=== PATIENT | female | born 1985 | race Caucasian/White ===

== ENCOUNTER 2017-01-12 04:59 | Inpatient (IN) ==
[2017-01-05 16:05] LABS: Basophils # (Auto) 0 K/mcL (0.0-0.3); Basophils % (Auto) 0.5 % (0.0-2.0); Eosinophils # (Auto) 0.1 K/mcL (0.0-0.7); Granulocytes % (Auto) 69.4 % (38.0-78.0); Lymphocytes # (Auto) 2.4 K/mcL (1.5-4.8); Lymphocytes % (Auto) 24.2 % (15.5-49.0); Mean Cell Volume 90.4 fL (80.0-100.0); Mean Corpuscular HGB Conc 33.8 g/dL (31.0-36.0); Mean Corpuscular Hemoglobin 30.6 pg (26.0-34.0); Monocytes # (Auto) 0.5 K/mcL (0.1-0.9); Monocytes % (Auto) 4.9 % (1.0-12.0); Platelet Count 318 K/mcL (140-440); RBC 4.76 M/mcL (4.00-5.20); Red Cell Distribution Width 12.5 % (11.5-14.5)
[2017-01-05 16:07] LABS: HCG,Serum NEGATIVE <10 (<10 mIU/ml)
[2017-01-05 16:09] LABS: Blood Urea Nitrogen 10 mg/dl (6-20)
[2017-01-05 16:16] LABS: Appearance,Urine HAZY; Bacteria,Urine 0 /hpf (0); Bilirubin,Urine NEG (NEG); Color,Urine YELLOW; Glucose,Urine (UA) NEGATIVE (NEG); Leukocyte Esterase,Urine NEG /uL (NEG); Mucus,Urine MANY /hpf (0); Nitrate,Urine NEG (NEG); Protein,Urine NEG (NEG); Specific Gravity,Urine 1.021 (1.000-1.035); Urine Blood 0.03 mg/dL (<0.03); Urine Hyaline Cast 2 /lpf (0-2); Urine RBC 1 /hpf (0-1); Urine Squamous Epithelial Cell 2 /hpf (0-4); Urine WBC 5 /hpf (0-4); Urobilinogen,Urine NEG (NEG)
[2017-01-12] MEDS ORDERED: PREGABALIN 75 MG CAPSULE PO SCH (06:00)
[2017-01-12] MEDS ORDERED: ACETAMINOPHEN 500 MG TABLET PO SCH (06:00)
[2017-01-12] MEDS ORDERED: ceFAZolin 1 GM VIAL IV SCH (06:00)
[2017-01-12] MEDS ORDERED: oxyCODONE 10 MG TAB.ER.12H PO SCH (06:00)
[2017-01-12 06:49] LABS: Appearance,Urine HAZY; Bacteria,Urine 0 /hpf (0); Bilirubin,Urine NEG (NEG); Color,Urine YELLOW; Glucose,Urine (UA) NEGATIVE (NEG); Leukocyte Esterase,Urine NEG /uL (NEG); Mucus,Urine MANY /hpf (0); Nitrate,Urine NEG (NEG); Protein,Urine NEG (NEG); Urine Blood 0.03 mg/dL (<0.03); Urine RBC 1 /hpf (0-1); Urine Squamous Epithelial Cell 3 /hpf (0-4); Urine WBC 2 /hpf (0-4); Urobilinogen,Urine NEG (NEG)
[2017-01-12] MEDS ORDERED: SCOPOLAMINE 1 PATCH PATCH TOPICAL ONE (06:55)
[2017-01-12] MEDS ORDERED: TRANEXAMIC ACID 1,000 MG/10 ML VIAL IV ONE (08:00)
[2017-01-12] MEDS ORDERED: PHENYLEPHRINE 10 MG/ML VIAL IV ONE (08:00)
[2017-01-12] MEDS ORDERED: DEXAMETHASONE 10 MG/ML VIAL IV ONE (08:00)
[2017-01-12] MEDS ORDERED: PROPOFOL 200 MG/20 ML VIAL IV ONE (08:00)
[2017-01-12] MEDS ORDERED: MIDAZOLAM 5 MG/5 ML VIAL IV ONE (08:00)
[2017-01-12] MEDS ORDERED: LIDOCAINE HCL/PF 100 MG/5 ML SYRINGE IV ONE (08:00)
[2017-01-12] MEDS ORDERED: ONDANSETRON 4 MG/2 ML VIAL IV ONE (08:00)
[2017-01-12] MEDS ORDERED: ePHEDrine 50 MG/ML AMPUL IV ONE (08:00)
[2017-01-12] MEDS ORDERED: KETAMINE 100 MG/ML ML IV ONE (08:00)
[2017-01-12] MEDS ORDERED: ROPIVACAINE HCL/PF 49.5 ML, EPINEPHrine 0.5 MG, 0.9 % SODIUM CHLORIDE 9 ML IJ ONE (08:01)
[2017-01-12] MEDS ORDERED: GENTAMICIN SULFATE 800 MG/20 ML VIAL IR ONE (08:18)
[2017-01-12] MEDS ORDERED: BENZOCAINE/MENTHOL 1 LOZENGE PO PRN ×2 (08:41→09:13)
[2017-01-12] MEDS ORDERED: ePHEDrine 50 MG/ML AMPUL IV PRN (08:41)
[2017-01-12] MEDS ORDERED: MEPERIDINE 25 MG/ML SYRINGE IV PRN (08:41)
[2017-01-12] MEDS ORDERED: METHOCARBAMOL 1,000 MG/10 ML VIAL IV PRN (08:41)
[2017-01-12] MEDS ORDERED: ACETAMINOPHEN 1,000 MG/100 ML BOTTLE IV ONE (08:41)
[2017-01-12] MEDS ORDERED: PROMETHAZINE 25 MG/ML VIAL IV PRN (08:41)
[2017-01-12] MEDS ORDERED: IPRATROPIUM/ALBUTEROL 3 ML AMPUL.NEB NEB PRN (08:41)
[2017-01-12] MEDS ORDERED: ONDANSETRON 4 MG/2 ML VIAL IV PRN ×2 (08:41→09:13)
[2017-01-12] MEDS ORDERED: FLUMAZENIL 0.1 MG/ML ML IV PRN (08:41)
[2017-01-12] MEDS ORDERED: ATROPINE SULFATE 0.4 MG/ML VIAL IV PRN (08:41)
[2017-01-12] MEDS ORDERED: NALOXONE HCL 0.4 MG/ML VIAL IV PRN (08:41)
[2017-01-12] MEDS ORDERED: diphenhydrAMINE 50 MG/ML VIAL IV PRN (08:41)
[2017-01-12] MEDS ORDERED: METOPROLOL TARTRATE 5 MG/5 ML VIAL IV PRN (08:41)
[2017-01-12] MEDS ORDERED: LACTATED RINGERS 1,000 ML IV SCH (08:45)
[2017-01-12] MEDS ORDERED: ACETAMINOPHEN 325 MG TABLET PO PRN (09:13)
[2017-01-12] MEDS ORDERED: BISACODYL 10 MG SUPP.RECT PR PRN (09:13)
[2017-01-12] MEDS ORDERED: FLEETS ADULT ENEMA PR PRN (09:13)
[2017-01-12] MEDS ORDERED: POLYETHYLENE GLYCOL 3350 17 GM PACKET PO PRN (09:13)
[2017-01-12] MEDS ORDERED: TRANEXAMIC ACID 1,000 MG/10 ML VIAL IV SCH (09:13)
[2017-01-12] MEDS ORDERED: MAGNESIUM HYDROXIDE 30 ML ORAL.SUSP PO PRN (09:13)
--- NOTE | 2017-01-12 09:13 | Brief Operative Note ---
Date of procedure: 01/12/17 Pre-op diagnosis: right knee djd and unstable patella Post-op diagnosis: same Procedure: right TKA Grafts/Implants: Yes Anesthesia: GETA Complications Description: 01/12/17 09:12 none Surgeon: Jordy Teran Clean Room Operator: Skinny Jorge Estimated blood loss (cc): 50 Tourniquet Time (Minutes): 55 Specimens Removed/Pathology: none sent Condition: stable Disposition: PACU
[2017-01-12] MEDS ORDERED: SUMAtriptan SUCCINATE 25 MG TABLET PO PRN (09:15)
[2017-01-12] MEDS: fentaNYL 100 MCG/2 ML VIAL IV PRN ×3 (10:09→10:26)
[2017-01-12] MEDS ORDERED: HYDROmorphone 2 MG/ML SYRINGE IV ONE (10:38)
[2017-01-12] MEDS: HYDROmorphone 2 MG/ML SYRINGE IV PRN ×6 (10:38→22:56)
--- NOTE | 2017-01-12 10:39 | XRay Report ---
HISTORY: Reason for Exam:Post-Op Total Knee FINDINGS: There is a well positioned total knee prosthesis. No fracture is present. IMPRESSION: Well-positioned right knee prosthesis Interpreted and Authenticated by: Amado Buchanan 01/12/17
[2017-01-12] MEDS: DIAZEPAM 10 MG/2 ML SYRINGE IV ONE ×2 (10:45→12:20)
[2017-01-12] MEDS ORDERED: DIAZEPAM 10 MG/2 ML SYRINGE ONE (10:51)
[2017-01-12] MEDS: ALPRAZolam 0.5 MG TABLET PO PRN (11:42)
[2017-01-12] MEDS: oxyCODONE/APAP 5/325MG TABLET PO PRN ×3 (11:43→23:58)
[2017-01-12] MEDS: 0.45 % SODIUM CHLORIDE 1,000 ML IV SCH ×2 (11:45→21:52)
[2017-01-12] MEDS: KETOROLAC 15 MG/ML VIAL IV SCH ×3 (12:21→23:23)
[2017-01-12] MEDS: 0.9 % SODIUM CHLORIDE 10 ML SYRINGE IV SCH ×2 (12:41→21:00)
[2017-01-12] MEDS: ceFAZolin 1 GM VIAL IV SCH ×2 (14:38→23:12)
[2017-01-12] MEDS: FERROUS SULFATE 325 MG TABLET PO SCH (18:08)
[2017-01-12] MEDS: DOCUSATE SODIUM 100 MG CAPSULE PO SCH (20:58)
[2017-01-12] MEDS: TOPIRAMATE 25 MG TABLET PO SCH (20:58)
[2017-01-12] MEDS: oxyCODONE 10 MG TAB.ER.12H PO SCH (20:59)
[2017-01-12] MEDS: SENNOSIDES 1 TABLET PO SCH (20:59)
[2017-01-12] MEDS: NORETHINDRONE E ESTRADIOL IRON PO SCH (21:00)
[2017-01-12] MEDS: ASPIRIN 325 MG ENTERIC COATED TABLET PO SCH (21:00)
[2017-01-12] MEDS ORDERED: TEMAZEPAM 15 MG CAPSULE PO PRN (21:00)
[2017-01-12] MEDS ORDERED: ZOLPIDEM 10 MG TABLET PO SCH (21:00)
[2017-01-13] MEDS: HYDROmorphone 2 MG/ML SYRINGE IV PRN ×6 (02:04→23:45)
[2017-01-13] MEDS: ALPRAZolam 0.5 MG TABLET PO PRN (02:04)
[2017-01-13] MEDS: oxyCODONE/APAP 5/325MG TABLET PO PRN ×4 (05:02→23:45)
[2017-01-13] MEDS: 0.9 % SODIUM CHLORIDE 10 ML SYRINGE IV SCH ×3 (05:03→23:45)
[2017-01-13] MEDS: KETOROLAC 15 MG/ML VIAL IV SCH ×3 (05:03→17:28)
[2017-01-13] MEDS: 0.45 % SODIUM CHLORIDE 1,000 ML IV SCH ×2 (06:20→17:50)
[2017-01-13] MEDS: LEVOTHYROXINE 100 MCG TABLET PO SCH (06:49)
[2017-01-13] MEDS: METHOCARBAMOL 750 MG TABLET PO PRN (07:56)
--- NOTE | 2017-01-13 07:58 | Orthopedic Progress Note ---
Subjective Patient information: Note initiated : 01/13/17 at 7:57 am Service Date, if different from initiated Date: [] Patient: Marline Zuñiga 31 y/o F admitted on 01/12/17 for Right Total Knee Arthroplasty Luis Manuel. Chief Complaint: [Pt is stable this morning on post operative day 1 without any significant concerns or complaints. Patients vital signs have remained stable. Patients dressing is dry and exhibits a grossly intact neurovascular and neuromotor exam. Patients 10 point ROS is otherwise negative. ] Objective Vital signs: Vital Signs Temp Pulse Resp BP BP Pulse Ox 01/13/17 07:24 99 01/13/17 07:18 98.2 F 20 107/67 97 01/13/17 04:35 97 01/13/17 04:00 97.8 F 64 20 106/67 97 01/12/17 23:39 97.8 F 71 20 103/62 92 01/12/17 21:00 95 01/12/17 20:00 97.7 F 84 20 113/78 95 01/12/17 17:00 93 01/12/17 15:15 97.9 F 18 121/80 96 01/12/17 13:58 112 H 113/76 96 01/12/17 13:13 96 01/12/17 12:45 111 H 16 100/63 96 01/12/17 12:15 94 H 109/72 96 01/12/17 12:00 95 H 124/88 99 01/12/17 11:45 93 H 143/94 100 01/12/17 11:30 97.1 F 115 H 24 H 127/84 100 01/12/17 11:19 97.6 F 76 24 H 143/103 98 01/12/17 11:15 103 H 15 148/115 96 01/12/17 11:10 81 34 H 133/86 97 01/12/17 11:00 97 H 24 H 154/106 97 01/12/17 10:45 121 H 20 136/102 97 01/12/17 10:35 126 H 21 147/100 96 01/12/17 10:20 120 H 21 144/93 94 01/12/17 10:15 105 H 19 135/84 93 01/12/17 10:10 113 H 21 133/84 95 01/12/17 10:04 112 H 18 138/75 94 01/12/17 09:59 117 H 18 140/77 92 01/12/17 09:54 113 H 16 140/81 94 01/12/17 09:49 112 H 12 128/76 98 01/12/17 09:39 112 H 12 128/76 99 01/12/17 09:34 99.6 F H 120 H 16 124/78 94 Intake and Output 01/12/17 01/13/17 01/13/17 21:59 05:59 13:59 Intake Total 1560 / 1560 1100 / 1100 Output Total 3000 / 3000 2375 / 2375 800 / 800 Balance -1440 / -1440 -1275 / -1275 -800 / -800 Intake: IV 1000 / 1000 Sodium Chloride 0.45% 1,000 ml 1000 / 1000 @ 100 mls/hr IV .Q10H CHELE Rx#: [id number] Oral 560 / 560 1100 / 1100 Output: Urine Catheter Amount 1800 / 1800 2175 / 2175 800 / 800 Void Amount 1200 / 1200 200 / 200 Other: # Voids 1 Weight 220 lb 9.6 oz Intake & Output: Intake & Output 01/12/17 01/13/17 01/13/17 21:59 05:59 13:59 Intake Total 1560 / 1560 1100 / 1100 Output Total 3000 / 3000 2375 / 2375 800 / 800 Balance -1440 / -1440 -1275 / -1275 -800 / -800 Weight 220 lb 9.6 oz Intake: IV 1000 / 1000 Sodium Chloride 0.45% 1,000 ml 1000 / 1000 @ 100 mls/hr IV .Q10H CHELE Rx#: [id number] Oral 560 / 560 1100 / 1100 Output: Urine Catheter Amount 1800 / 1800 2175 / 2175 800 / 800 Void Amount 1200 / 1200 200 / 200 Other: # Voids 1 Incision clean and dry: Yes Dressing: Yes clean Neurological exam IM: Yes motor sensory intact, Yes neurovascular intact Extremities exam IM: Yes Foot pink and warm, Yes neurovascular intact - Labs CBC & BMP: 01/13/17 05:46 01/05/17 13:34 Labs: Orthopedic Labs 01/05/17 13:34 PT 13.6 INR 1.0 APTT 32 01/13/17 01/05/17 05:46 13:34 Hgb 14.6 Hct 29.9 L 43.0 Assessment and Plan (1) Hx of total knee arthroplasty The patient has been educated regarding dressing care, Physical Therapy recommendations, home exercises, restrictions, and follow up appointments. The patient has had all necessary DME prescribed. The patient has remained stable during their hospital course. The patient was discharge with a stable exam. Status: Acute
--- NOTE | 2017-01-13 08:00 | Discharge Summary ---
Ortho Discharge - TKA - Patient Instructions Diet: Regular Diet Activity: activity as tolerated, weight bearing as tolerated Total Knee Protocol: For Total Knee: Start ROM CHELI with stationary bike or rocking chair. Work on gaining full extension of knee. Posterior dislocation precautions provided. Hip abductor strengthening and gait training instructions provided. Apply Cryocuff as instructed. Dressing Care: May shower in 2 days Patient Education: Total Knee Replacement (DC) Additional Instructions: CPM for home use - Problem Maintenance (1) Hx of total knee arthroplasty Status: Acute - Follow Up Plan Follow Up Appointments: Jordy Teran MD [Physician] - 01/27/17 9:20 am Disposition: Home, Self-Care Prognosis: Good Rehab Potential: Good I certify that the patient requires SNF services: No Overall status at discharge: patient is progressing back to baseline - Orders For Discharge Prescriptions: Aspirin [Ecotrin] 325 mg PO BID #60 tab.ec Docusate Sodium [Colace] 100 mg PO BID #60 cap oxyCODONE [Oxycontin] 10 mg PO BID #30 tab.er.12h oxyCODONE/APAP [Percocet 5-325 mg] 1 - 2 tab PO Q4HP PRN #75 tab PRN Reason: Pain Level 3-6
--- NOTE | 2017-01-13 08:35 | Operative Note ---
DATE OF OPERATION: 01/12/2017 PREOPERATIVE DIAGNOSIS: A 31-year-old with a right knee with patellar instability and severe arthritis. 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 PROCEDURE: Right knee total knee arthroplasty. SURGEON: Jordy Teran M.D. ACCESS LEAD: Skinny Jorge PA-C. ANESTHESIA: General LMA anesthesia. COMPLICATIONS: None. BLOOD LOSS: Less than 50 mL. TOURNIQUET TIME: 55 minutes. DESCRIPTION OF PROCEDURE: The patient was brought to the operating room and put to sleep with general LMA anesthesia. Once we confirmed the operative site as the right knee both by x-rays, timeout, and initials on the skin, we then exsanguinated the leg and inflated the tourniquet to 250 pounds of pressure. A midline incision was then created, mid vastus approach. We inspected the knee. Once into the knee this showed no patellofemoral groove. The patella would easily pop in and out of the joint. It was very unstable. The medial articular surface of the femur was in good repair with a torn medial meniscus laterally. The compartment showed a medial osteochondroma defect. ACL and PCL were intact. At this point, we proceeded with a total knee arthroplasty, both to correct the arthritis of patellofemoral joint and to realign the patella. She had valgus malalignment. Once this was done, we irrigated thoroughly. We then placed pins above and below the knee, registered the pins in the knee and thirty points on the femur and tibia. We balanced the knee, both at 15 and 90 degrees. We brought the robot in, registered the robot, and then made our distal femoral cut and our chamfer cuts. Anterior cut was also made. We then registered the tibia and the robot and made our tibial cut. Once this was done, we removed these bony fragments, preserved the posterior cruciate ligament and removed the remnants of the meniscus, and removed osteophytes posteriorly. Once done, we irrigated and then we placed a tibial tray, setting the rotation per robot and tapped this into place. We made the fin cuts and central reaming for a long stemmed component. We irrigated thoroughly and then placed a trial. The femur was then covered, positioning this as far laterally as possible. This was tapped into place. Trialed a standard thickness poly. This seemed to fit very nicely. Full range of motion. We achieved 1 degree flexion and extension. We then prepared the patella. It only measured 17 mm. There was significant bone loss. We took this down to 13 mm and then cemented into place a 33 mm patellar component. This made the kneecap 22 mm in total thickness after the reconstruction. We irrigated thoroughly and the patella tracked very nicely. We irrigated thoroughly. The knee was very stable through range of motion. We then closed the mid vastus approach and cemented in the above-mentioned components. All these components were cemented without antibiotics. Excess cement was removed. We kept the knee at 45 degrees until the cement was completely dried. We then took the knee through range of motion, very stable. We prepared the anterior medial capsule closure with #1 Stratafix suture x2 sutures for reinforcement. We then closed the skin with 2-0 Vicryl and adhesive closure. The patient tolerated this well without complication. Tourniquet time was 55 minutes. Blood loss was 50 mL. [id number]:[id number] Job ID: [id number] Doc ID: [id number] Jordy Teran MD
[2017-01-13] MEDS: DOCUSATE SODIUM 100 MG CAPSULE PO SCH ×2 (08:39→21:04)
[2017-01-13] MEDS: TOPIRAMATE 25 MG TABLET PO SCH ×2 (08:40→21:05)
[2017-01-13] MEDS: oxyCODONE 10 MG TAB.ER.12H PO SCH ×2 (08:40→21:04)
[2017-01-13] MEDS: ASPIRIN 325 MG ENTERIC COATED TABLET PO SCH ×2 (08:40→21:04)
[2017-01-13] MEDS: FERROUS SULFATE 325 MG TABLET PO SCH (17:53)
[2017-01-13] MEDS: SENNOSIDES 1 TABLET PO SCH (21:04)
[2017-01-13] MEDS: NORETHINDRONE E ESTRADIOL IRON PO SCH (21:05)
[2017-01-14] MEDS: KETOROLAC 15 MG/ML VIAL IV SCH ×2 (00:48→05:53)
[2017-01-14] MEDS: METHOCARBAMOL 750 MG TABLET PO PRN ×2 (01:06→07:08)
[2017-01-14] MEDS: 0.45 % SODIUM CHLORIDE 1,000 ML IV SCH (01:53)
[2017-01-14] MEDS: oxyCODONE/APAP 5/325MG TABLET PO PRN ×3 (03:22→11:08)
[2017-01-14] MEDS: HYDROmorphone 2 MG/ML SYRINGE IV PRN (04:30)
[2017-01-14] MEDS: 0.9 % SODIUM CHLORIDE 10 ML SYRINGE IV SCH (04:30)
[2017-01-14] MEDS: LEVOTHYROXINE 100 MCG TABLET PO SCH (07:08)
[2017-01-14] MEDS: DOCUSATE SODIUM 100 MG CAPSULE PO SCH (08:40)
[2017-01-14] MEDS: ASPIRIN 325 MG ENTERIC COATED TABLET PO SCH (08:40)
[2017-01-14] MEDS: TOPIRAMATE 25 MG TABLET PO SCH (08:40)
== END 2017-01-14 12:45 | disposition home or self-care (01) | DRG 470 ==
LOC: MEDSUR 04:59
PROVIDERS: ADMIT Orthopaedic Surgery; ATTEND Orthopaedic Surgery